=== PATIENT | female | born 2000 | race Caucasian/White ===

== ENCOUNTER 2023-10-13 14:36 | Emergency (ER) | payer OTHER ==
[2023-10-13 15:21] LABS: BILIRUBIN,URINE NEGATIVE (NEGATIVE); GLUCOSE, URINE (UA) NEGATIVE (NEGATIVE); KETONES,URINE (UA) NEGATIVE (NEGATIVE); LEUKOCYTE ESTERASE, URINE SMALL (NEGATIVE); NITRITE,URINE NEGATIVE (NEGATIVE); OCCULT BLOOD,URINE NEGATIVE (NEGATIVE); PROTEIN,URINE NEGATIVE (NEGATIVE); UROBILINOGEN,URINE 0.2 (NORMAL) E.U./dL (NORMAL)
[2023-10-13 15:27] LABS: CLARITY,URINE CLEAR (CLEAR)
[2023-10-13 15:43] LABS: BACTERIA,URINE Few /HPF (None Seen); RBC,URINE 0-5 /HPF (0-5); SQUAMOUS EPITHELIAL CELL,UR MANY Squamous (<= Few)
--- NOTE | 2023-10-13 16:26 | Ultrasound Report ---
PROCEDURE: OB 14+ Weeks INDICATIONS: R/O premature rupture of membranes OUTSIDE/PRIOR DATING DATA: Last menstrual period (LMP): 06/07/2023. LMP-based estimated date of delivery (LUCAS): 03/13/2020. First dating scan (date and location): 10/13/2023. Estimated date of delivery (LUCAS) from first dating scan: 03/11/2024. TECHNIQUE: Real-time scanning was performed of the fetus, with image documentation and biometric measurements. Endovaginal scanning: Not performed. COMPARISON: None. FINDINGS: General: A single living intrauterine gestation is present. Presentation: Variable Placenta: Placental position is posterior, without previa. Amniotic fluid index: 11.0 cm, within normal limits for gestational age. heart rate: 150 beats per minute. Maternal cervical canal: 4.6 cm long; normal length is 2.5 cm or more. biometrics: Biparietal diameter: 40 mm; 18 weeks 0 days Head circumference: 156 mm; 18 weeks 4 days Abdominal circumference: 140 mm; 19 weeks 3 days Femur length: 28 mm; 18 weeks 3 days Estimated gestational age from initial scan: not applicable. Composite gestational age from present scan: 18 weeks 4 days Estimated weight and percentile: 261 g, which is at the 80th percentile for gestational age Measurement variability for biometric dating: +/- 10 days from 12-20 weeks gestation, +/- 2 weeks fro m 20-30 weeks gestation, +/- 3 weeks for 30 weeks gestation or later. IMPRESSION: Single living intrauterine gestation. Reviewed by: Cristhian Baugh MD on 10/13/2023 4:24 PM PST Approved by: Cirsthian Baugh MD on 10/13/2023 4:24 PM PST Station ID: [id number]
--- NOTE | 2023-10-13 18:39 | CONSULTATION NOTE ---
Surgery Consult - Admit Date Hospital Admission Date: 10/13/23 - Consult Date Consult Date: 10/13/23 Requesting Provider: ER requesting follow up 2'2 vaginal discharge in - Chief Complaint Chief Complaint: pt here for "about a day" of increased vaginal discharge - Home Meds/Allergies Home Medications: Patient History Medication Instructions Recorded Confirmed Pnv No.95/Ferrous Fum/Folic AC 1 each PO DAILY 10/13/23 10/13/23 [ Caplet] Allergies/Adverse Reactions: Allergies Allergy/AdvReac Type Severity Reaction Status Date / Time No Known Drug Allergies Allergy Verified 10/13/23 14:55 - Vital Signs Vital Signs: Last Vital Signs Temp 97.2 F L 10/13/23 14:51 Pulse 76 10/13/23 14:51 Resp 16 10/13/23 14:51 BP 109/68 10/13/23 14:51 Pulse Ox 100 10/13/23 14:51 O2 Flow Rate - Consultation Note Consultation Note: Pt presented with 1 day of increased vaginal discharge, and some increased odour. mostly she notices that her underwear are a bit more wet than usual, after voiding. and there is some smell. she did have intercourse yesterday and there wasn't a worse smell after the intercourse no bleeding minimal cramping no gush of fluid first was a CAB in May 2022 without complications at 6 weeks of gestation. Had care in [place] and wasn't notified of being high risk or had problems up until this point. PMH:denies PSH: denies POB: - 6w MAB in 05/24 - CAB without complications PGYN: no h/o abnormal pap smears has regular periods when not no h/o STDs no h/o problems with uterus or ovaries, did have a remote h/o a cyst that resolved on it's own. Meds: none All: NKDA Soc: neg x3, does drink soda daily - discussed Support system: her , and her family is in [place], [place], (his family), and [place] (hers). On exam - unremarkable VSS U/S wnl and reassuring SSE: normal appearing cervix, though does appear somewhat erythematous - not icw . yellowish vaginal discharge - scant no pooling negative dami selam UA reviewed: neg nites, pos leuk est all consistent with BV - which she has had in the past - and was similar to this discussed treatment options. also sending vaginitis swab for confirmation pt prefers metronidazole PO, Rx sent to [facility]. Pt encouraged to call clinic to begin processes of establishing care. all questions answered
--- NOTE | 2023-10-13 19:18 | ED Physician Documentation ---
PD HPI FEMALE - Stated complaint Stated Complaint: - Chief complaint Chief Complaint: Abd Pain - History obtained from History obtained from: Patient - Additional information Additional information: 23-year-old female presents emergency department today for concerns of possible ruptured membranes. Patient is 18 weeks , G2, P0 the last time she was she had an uncomplicated miscarriage at about 6 weeks. Patient has not been able to establish care with [facility] thus far as she has recently moved to the area due to her 's [employer] job. Patient reports last night she started to notice some vaginal discharge that she describes as clear with some mild abdominal cramping and pain. She says she put the padding and she does notice some oozing of the vaginal discharge on the pad with each pad change. PD PAST MEDICAL HISTORY - Past Medical History Past Medical History: No - Past Surgical History Past Surgical History: No - Present Medications Home Medications: Ambulatory Orders Medication Instructions Recorded Confirmed Pnv No.95/Ferrous Fum/Folic AC 1 each PO DAILY 10/13/23 10/13/23 [ Caplet] metroNIDAZOLE [Flagyl] 500 mg PO BID 7 Days #14 tablet 10/13/23 - Allergies Allergies/Adverse Reactions: Allergies Allergy/AdvReac Type Severity Reaction Status Date / Time No Known Drug Allergies Allergy Verified 10/13/23 14:55 - Social History Does the pt smoke?: No Smoking Status: Never smoker Does the pt drink ETOH?: No Does the pt have substance abuse?: No - Immunizations Immunizations are current?: Yes PD ED PE NORMAL - Vitals Vital signs reviewed: Yes - General General: Alert and oriented X 3, No acute distress, Well developed/nourished - Abdomen Abdomen: Normal bowel sounds, Soft, Other (18 weeks ) - Female Female : Other ( exam complet by OBGYN) - Back Back: No CVA TTP Results - Vitals Vitals: Vital Signs - 24 hr 10/13/23 10/13/23 14:51 19:28 Temperature 36.2 C L Heart Rate 76 64 Respiratory 16 18 Rate Blood Pressure 109/68 114/74 O2 Saturation 100 99 Oxygen O2 Source Room air - Labs Labs: Laboratory Tests 10/13/23 15:15 Urine Color YELLOW Urine Clarity CLEAR Urine pH 7.0 Ur Specific [place] 1.010 Urine Protein NEGATIVE Urine Glucose (UA) NEGATIVE Urine Ketones NEGATIVE Urine Occult Blood NEGATIVE Urine Nitrite NEGATIVE Urine Bilirubin NEGATIVE Urine Urobilinogen 0.2 (NORMAL) Ur Leukocyte Esterase SMALL H Urine RBC 0-5 Urine WBC 4-5 Ur Squamous Epith Cells MANY Squamous H Urine Bacteria Few Ur Microscopic Review INDICATED Urine Culture Comments NOT INDICATED - Rads (name of study) OB US Relevant Findings:: Final report received, EMP independent interpretation of test (Single living intrauterine gestation, amniotic fluid index 11 cm which is within normal limits for gestational age.) PD Medical Decision Making - ED course ED course: 23-year-old female here for concerns of ruptured membranes. Ultrasound does not reveal any leaking amniotic fluid. Because patient has not sought care with [facility] I reach out to Dr. Crouch, [facility] for further evaluation and consideration of why patient is still having some vaginal oozing and leaking despite normal ultrasound. She was kind enough to come in and do a vaginal exam on the patient and patient was found to have bacterial vaginosis. A prescription of Flagyl was sent to her preferred pharmacy for her to start taking tomorrow twice a day for the next 7 days. Urinalysis does not have any leukocytes or nitrites not concerning for UTI. She is safe for discharge at this time all questions answered. Grateful for Dr. Crouch wonderful support with this pt. Departure - Departure Disposition: 01 Home, Self Care Clinical Impression: Bacterial vaginosis Condition: Good Instructions: ED Vaginosis Bacterial Prescriptions: metroNIDAZOLE [Flagyl] 500 mg PO BID 7 Days #14 tablet Comments: Thank you for trusting us with your care we have completed an ultrasound and your baby appears to be healthy there is no abnormalities visualized. Dr. Crouch our wonderful [facility] was able to come in and do a pelvic exam on you for further evaluation of your concerns of ongoing vaginal leakage. You are found to have bacterial vaginosis she sent a prescription to your preferred pharmacy, you will take Flagyl twice a day for the next 7 days for your bacterial vaginosis. Please attempt to establish care with [facility] as soon as possible and over that can be tricky with the [employer]. Please come back to the emergency department for starting to experience any abdominal pain, nausea vomiting, or any signs or symptoms of worsening infection, fevers or chills or any other concerning symptoms related to her . Forms: PCP List Discharge Date/Time: 10/13/23 19:28
[2023-10-13 19:39] VITALS: BP 114/74; O2SAT 99
[2023-10-13 22:24] LABS: BACTERIAL VAGINOSIS DNA NEGATIVE (NEGATIVE); CANDIDA GLABRATA DNA NEGATIVE (NEGATIVE); CANDIDA GROUP DNA NEGATIVE (NEGATIVE); CANDIDA KRUSEI DNA NEGATIVE (NEGATIVE); TRICHOMONAS VAGINALIS DNA NEGATIVE (NEGATIVE)
== END 2023-10-13 19:28 | disposition home or self-care (01) ==
LOC: ED 14:36
DX: O99.891 Other specified diseases and conditions complicating pregnancy (principal); N76.0 Acute vaginitis; Z3A.18 18 weeks gestation of pregnancy
CPT/HCPCS: 81001; 81003; 81514; 87086; 99284

== ENCOUNTER 2023-10-31 08:00 | Outpatient (CLI) | payer OTHER ==
[2023-10-31 16:37] LABS: BILIRUBIN,URINE NEGATIVE (NEGATIVE); GLUCOSE, URINE (UA) NEGATIVE (NEGATIVE); KETONES,URINE (UA) NEGATIVE (NEGATIVE); LEUKOCYTE ESTERASE, URINE NEGATIVE (NEGATIVE); NITRITE,URINE NEGATIVE (NEGATIVE); OCCULT BLOOD,URINE NEGATIVE (NEGATIVE); PROTEIN,URINE NEGATIVE (NEGATIVE); UROBILINOGEN,URINE 0.2 (NORMAL) E.U./dL (NORMAL)
[2023-10-31 16:40] LABS: CLARITY,URINE CLEAR (CLEAR)
[2023-10-31 17:08] LABS: WBC,URINE 0-3 /HPF (0-5)
[2023-10-31 17:09] LABS: AMORPHOUS SEDIMENT,UR Few /LPF; BACTERIA,URINE Many /HPF (None Seen); RBC,URINE 0-5 /HPF (0-5); SQUAMOUS EPITHELIAL CELL,UR MANY Squamous (<= Few)
== END 2023-10-31 23:59 | disposition home or self-care (01) ==
LOC: LAB.WC 08:00
PROVIDERS: ATTEND Nurse Practitioner
DX: Z34.90 Encounter for supervision of normal pregnancy, unspecified, unspecified trimester (principal)
CPT/HCPCS: 81001; 87086

== ENCOUNTER 2023-11-07 07:57 | Outpatient (CLI) | payer OTHER ==
--- NOTE | 2023-11-08 09:00 | Ultrasound Report ---
PROCEDURE: OB Anatomy Scan INDICATIONS: SUPERVISION OF OUTSIDE/PRIOR DATING DATA: Last menstrual period (LMP): 06/07/2023. LMP-based estimated date of delivery (LUCAS): 03/13/2024. First dating scan (date and location): Not available. Estimated date of delivery (LUCAS) from first dating scan: Not available. The below data below was generated using the working LUCAS of 03/11/2024 TECHNIQUE: Real-time scanning was performed of the fetus, with image documentation and biometric measurements. Endovaginal scanning: Not performed. COMPARISON: OB ultrasound, 10/13/2023. FINDINGS: General: A single living intrauterine gestation is present. Presentation: Cephalic Placenta: Placental position is posterior, without previa. Amniotic fluid index: 10.2 cm with the largest pocket 2.7 cm. heart rate: 135 beats per minute. Maternal cervical canal: Closed measuring 3.4 cm long; normal length is 2.5 cm or more. biometrics: Biparietal diameter: 4.8 cm; 20 weeks 5 days; 6.3%. Head circumference: 19.8 cm; 22 weeks 0 days; 32.8%. Abdominal circumference: 17.7 cm; 22 weeks 5 days; 59.8%. Femur length: 3.8 cm; 22 weeks 1 day; 39.7%. Estimated gestational age from initial scan: 22 weeks 1 day Composite gestational age from present scan: 21 weeks 6 days Estimated weight and percentile: 494.5 cm; 53.1% for gestational age. Measurement variability in biometric dating: +/- 10 days from 12-20 weeks gestation, +/- 2 weeks from 20-30 weeks gestation, +/- 3 weeks at 30 weeks gestation or later. Anatomic survey: Neuro: Ventricles are normal at less than 10 mm. Cisterna magna is normal at 3-11 mm. Cerebellum i s normal in size and morphology. Nuchal skin fold: Normal at less than 6 mm between 14 and 20 weeks gestational age. Face: Nose and lips, facial profile are normal. Spine: No evidence for spina bifida. Heart: 4-chambered heart is present, with normal ventricular outflow tracts. Diaphragm: Diaphragm is intact. Stomach: Left-sided stomach is present. Kidneys: No hydronephrosis. Normal is less than 5 mm in 2nd trimester, less than 7 mm in 3rd trimester. Cord: 3 vessel cord has orthotopic insertion. Bladder: Normal in size. Extremities: All 4 extremities are visualized. IMPRESSION: 1. A single living IUP with appropriate interval growth. 2. weight is 494.5 g, 53.1 for gestational age. 3. Normal anatomic survey. Reviewed by: Annalisa Key MD on 11/08/2023 8:59 AM PST Approved by: Annalisa Key MD on 11/08/2023 8:59 AM PST Station ID: [id number]
== END 2023-11-07 07:58 | disposition home or self-care (01) ==
LOC: DI 07:57
PROVIDERS: ATTEND Obstetrics & Gynecology
DX: Z34.92 Encounter for supervision of normal pregnancy, unspecified, second trimester (principal); Z36.89 Encounter for other specified antenatal screening

== ENCOUNTER 2023-12-08 12:34 | Outpatient (CLI) | payer OTHER ==
[2023-12-08 13:58] LABS: HCT - HEMATOCRIT 33.8 % (37.0-47.0); HGB - HEMOGLOBIN 11.7 g/dL (12.0-16.0); MEAN CORPUSCULAR HEMOGLOBIN 31.9 pg (27.0-31.0); MEAN CORPUSCULAR HGB CONC 34.6 g/dL (32.0-36.0); MEAN CORPUSCULAR VOLUME 92.1 fL (81.0-99.0); MEAN PLATELET VOLUME 8.9 fL (7.9-10.8); RED BLOOD COUNT 3.67 10^6/uL (4.20-5.40); RED CELL DISTRIBUTION WIDTH 12.5 % (12.0-15.0); WHITE BLOOD COUNT 8.3 x10^3/uL (4.8-10.8)
[2023-12-09 06:09] LABS: HBsAG SCREEN Negative (Negative)
== END 2023-12-08 12:35 | disposition home or self-care (01) ==
LOC: LAB 12:34
PROVIDERS: ATTEND Obstetrics & Gynecology
DX: Z34.90 Encounter for supervision of normal pregnancy, unspecified, unspecified trimester (principal)
CPT/HCPCS: 36415; 82950; 85027; 86850; 87340

== ENCOUNTER 2023-12-19 08:00 | Outpatient (CLI) | payer OTHER ==
[2023-12-20 00:24] LABS: BACTERIAL VAGINOSIS DNA NEGATIVE (NEGATIVE); CANDIDA GLABRATA DNA NEGATIVE (NEGATIVE); CANDIDA GROUP DNA NEGATIVE (NEGATIVE); CANDIDA KRUSEI DNA NEGATIVE (NEGATIVE); TRICHOMONAS VAGINALIS DNA NEGATIVE (NEGATIVE)
== END 2023-12-19 23:59 | disposition home or self-care (01) ==
LOC: LAB.WC 08:00
PROVIDERS: ATTEND Obstetrics & Gynecology
DX: N89.8 Other specified noninflammatory disorders of vagina (principal)
CPT/HCPCS: 81514

== ENCOUNTER 2024-01-02 08:00 | Outpatient (CLI) | payer OTHER ==
[2024-01-04 17:09] LABS: HSV-1 DNA Positive (Negative); HSV-2 DNA Negative (Negative)
== END 2024-01-02 23:59 | disposition home or self-care (01) ==
LOC: LAB.WC 08:00
PROVIDERS: ATTEND Obstetrics & Gynecology
DX: N90.89 Other specified noninflammatory disorders of vulva and perineum (principal)
CPT/HCPCS: 87529

== ENCOUNTER 2024-02-20 08:00 | Outpatient (CLI) | payer OTHER | END 2024-02-20 23:59 | disposition home or self-care (01) | LOC: LAB.WC 08:00 | PROVIDERS: ATTEND Obstetrics & Gynecology | DX: Z36.85 Encounter for antenatal screening for Streptococcus B (principal) | CPT/HCPCS: 87081; 87797 ==

== ENCOUNTER 2024-03-10 01:41 | Inpatient (IN) | payer OTHER ==
[2024-03-10] MEDS ORDERED: SODIUM CHLORIDE FLUSH 0.9% 10 ML SYRINGE IVP PRN (01:58)
[2024-03-10] MEDS ORDERED: miSOPROStoL 200 MCG TABLET PR PRN (01:58)
[2024-03-10] MEDS ORDERED: CARBOPROST TROMETHAMINE 250 MCG/ML VIAL IM PRN (01:58)
[2024-03-10] MEDS ORDERED: lidocaine 1% 20 ML MDV ID PRN (01:58)
[2024-03-10] MEDS ORDERED: hydrALAZINE INJ 20 MG/ML VIAL IVP PRN ×2 (01:58)
[2024-03-10] MEDS ORDERED: LACTATED RINGERS 2,000 ML ONE (01:58)
[2024-03-10] MEDS ORDERED: OXYTOCIN 10 UNIT/ML VIAL IM PRN (01:58)
[2024-03-10] MEDS ORDERED: LABETALOL 20 MG/4 ML SYRINGE IVP PRN ×3 (01:58)
[2024-03-10] MEDS ORDERED: TRANEXAMIC ACID IN NACL 1,000 MG/100 ML BAG IV PRN (01:58)
[2024-03-10] MEDS ORDERED: miSOPROStoL 200 MCG TABLET BC PRN (01:58)
[2024-03-10] MEDS ORDERED: NIFEdipine 10 MG CAPSULE PO PRN (01:58)
[2024-03-10] MEDS ORDERED: METHYLERGONOVINE 0.2 MG/ML VIAL IM PRN (01:58)
[2024-03-10] MEDS ORDERED: TERBUTALINE 1 MG/ML VIAL SUBQ PRN (01:58)
[2024-03-10] MEDS: LACTATED RINGERS 1,000 ML IV PRN (02:00)
[2024-03-10] MEDS ORDERED: SODIUM CHLORIDE FLUSH 0.9% 10 ML SYRINGE IVP SCH (02:00)
--- NOTE | 2024-03-10 02:07 | HISTORY & PHYSICAL EXAMINATION ---
Admit History - Visit Reason Visit Reason: Contractions - : 2 Parity: 0 Care: positive: [facility] Risk/History: positive: None Complications This : positive: None Smoking Status: Never smoker - Mother's Labs Mother's Blood Type: positive: O Mother's RH: positive: Positive GBS: positive: Group B Strep Positive Rubella Status: positive: Equivocal - Other Maternal History Other Maternal History: LMP: 06/08/23 LUCAS by LMP: 03/14/24 US:08/27/23 c/w dates Final LUCAS: 03/14/24 , [place]: Yvette. started in [place]. to [place] in Sep 2023. originally from [place]. anxiety: was on sertraline at beginning of . off now and feels ok. 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 GERD- Famotiding 20mg, 02/28 better and not using anything. Pre- Weight:129 BMI: 20.24 Blood type: O+ Antibody: negative. 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 Genetic testin09/13/23 - neg Covid: 10/31/23 Flu: 10/31/23 FAS: Placenta:posterior Cord:3VC CARLOS:10.2cm EFW:494g 53%ile 50gm OGCT: 94 TDAP: 12/18 Breast Pump: 12/18 3rd trimester CBC H/H 11.7/33.8 plt 235 GBS:Positive NKDA Delivery plan: epidural. Contraception: OCPs vs POPs. 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 Stopped drinking alcohol due to . Denies current use of tobacco, marijuana or other recreational drugs. Family Hx: Denies family history of congenital anomalies, Cystic Fibrosis or chromosomal abnormalities Allergies: NKDA Medications: PNV, VALTREX - HPI Vital Signs Temperature 36.4 C L 03/10/24 01:45 Heart Rate 69 03/10/24 01:45 Respiratory Rate 16 03/10/24 01:45 Blood Pressure 135/87 H 03/10/24 01:45 Temperature 36.4 C L 03/10/24 01:45 Heart Rate 69 03/10/24 01:45 Respiratory Rate 16 03/10/24 01:45 Blood Pressure 135/87 H 03/10/24 01:45 O2 Saturation If not protocol: Oxygen Flow, liters/minute Meds/Allgy - Home Medications Home Medications: Ambulatory Orders Medication Instructions Recorded Confirmed Pnv No.95/Ferrous Fum/Folic AC 1 each PO DAILY 10/13/23 10/13/23 [ Caplet] metroNIDAZOLE [Flagyl] 500 mg PO BID 7 Days #14 tablet 10/13/23 - Allergies Allergies/Adverse Reactions: Allergies Allergy/AdvReac Type Severity Reaction Status Date / Time No Known Drug Allergies Allergy Verified 10/13/23 14:55 Physical - Abdominal Exam Vital Signs: Temp Pulse Resp BP Pulse Ox O2 Flow Rate 36.4 C L 69 16 135/87 H 03/10/24 01:45 03/10/24 01:45 03/10/24 01:45 03/10/24 01:45 Contraction Frequency (min/apart): 2-4 Contraction Intensity: positive: Moderate Uterine Resting Tone: positive: Soft - Monitoring Heart Rate Baseline: 140 Strip Review: positive: Category I - Presentation Presentation: positive: Vertex - Vaginal Exam Membranes: positive: Membranes intact Dilation (in cm): 4 Effacement (%): 80 Station: positive: -2 - Speculum Exam Speculum Exam Performed: positive: No - Other Notes Labor Progress Note/Additional Text: HPI: This 23 yo @ 39+3 weeks by LMP and confirmed by first trimester ultrasound. She began delilah earlier this evening and came into L&D triage when the contractions were spaced q2 minutes apart and became more painful. Upon arrival her cervix was 4/80/-2 and vertex with intact membranes. We reviewed management options at length and patient desires to allow labor to progress naturally unless there is a need for intervention. GBS POSITIVE. She started her in [place] and transferred care with [facility] at 20+5 weeks. Her remained uncomplicated Denies Headache, visual changes or right upper quadrant abdominal pain. Denies nausea and vomiting. Denies urinary urgency or dysuria. ROS: All other symptoms reviewed and were negative except per HPI. Dating criteria: LMP: 06/08/23 LUCAS by LMP: 03/14/24 US:08/27/23 c/w dates Final LUCAS: 03/14/24 serial Exams agree OB Hx: G1: 05/2022 SAB G2: Current Physical exam: Normocephalic, atraumatic Heart RRR w/o M/G/R Lungs CTAB Abdomen gravid, soft, nontender. EFW 3600 FHR baseline 140, moderate variability, + accelerations, no decelerations Contractions palpate moderate every 2-4 minutes with soft resting tone SVE 4/80/-2 vertex, membranes intact Bilateral LE's no edema Mood is good. Plan for Labor - Plan For Labor I expect patient to be DC'd or transferred within 96 hours.: Yes Plan for Labor: Assessment: 23yo @ 39+3 weeks gestation Early labor FHR Cat I GBS POS, NKDA Plan: Admit to [facility] for Expectant management Continuous monitoring Jacuzzi PRN. Nitrous oxide PRN. Epidural per maternal request Anticipate .
[2024-03-10] MEDS: fentaNYL 100 MCG/2 ML VIAL IVP PRN (02:15)
[2024-03-10 02:34] LABS: BASOPHILS % (AUTO) 0.2 %; EOSINOPHILS % (AUTO) 0.4 %; HCT - HEMATOCRIT 36.7 % (37.0-47.0); HGB - HEMOGLOBIN 12.6 g/dL (12.0-16.0); LYMPHOCYTES # (AUTO) 2.7 10^3/uL (1.5-3.5); LYMPHOCYTES % (AUTO) 26.4 %; MEAN CORPUSCULAR HEMOGLOBIN 31.1 pg (27.0-31.0); MEAN CORPUSCULAR HGB CONC 34.3 g/dL (32.0-36.0); MEAN CORPUSCULAR VOLUME 90.6 fL (81.0-99.0); MEAN PLATELET VOLUME 10.1 fL (7.9-10.8); MONOCYTES # (AUTO) 0.7 10^3/uL (0.0-1.0); MONOCYTES % (AUTO) 7.3 %; NEUTROPHILS # (AUTO) 6.7 10^3/uL (1.5-6.6); NEUTROPHILS % (AUTO) 65.3 %; PLT - PLATELET COUNT 230 10^3/uL (130-450); RED BLOOD COUNT 4.05 10^6/uL (4.20-5.40); RED CELL DISTRIBUTION WIDTH 13.1 % (12.0-15.0); WHITE BLOOD COUNT 10.2 x10^3/uL (4.8-10.8)
[2024-03-10] MEDS: AMPICILLIN 2 GM in SODIUM CHLORIDE 0.9% MINIBAG 100 ML IV ONE (02:44)
[2024-03-10] MEDS ORDERED: LIDOCAINE 2%-EPI 1:100000 20 ML MDV ONE (03:45)
[2024-03-10] MEDS ORDERED: ROPIVACAINE 0.2% 200 MG/100 ML BAG EP ONE (03:45)
--- NOTE | 2024-03-10 04:30 | ANESTHESIA ---
Pre-Anesthesia VS, & Labs - Diagnosis active labor - Procedure labor epidural Vital Signs: Temp Pulse Resp BP Pulse Ox O2 Flow Rate 36.4 C L 69 16 135/87 H 03/10/24 02:04 03/10/24 01:45 03/10/24 01:45 03/10/24 01:45 Height: 5 ft 7 in Weight (kg): 74.843 kg Body Mass Index: 25.8 BMI Classification: Overweight - NPO Other - Is Patient ?: Yes - Lab Results Current Lab Results: Laboratory Tests 03/10/24 03:00: Blood Type Recheck O POSITIVE 03/10/24 02:10: WBC 10.2, RBC 4.05 L, Hgb 12.6, Hct 36.7 L, MCV 90.6, MCH 31.1 H , MCHC 34.3, RDW 13.1, Plt Count 230, MPV 10.1, Neut # (Auto) 6.7 H, Lymph # (Auto) 2.7, [place] # (Auto) 0.7, Eos # (Auto) 0.0, Baso # (Auto) 0.0, Absolute Nucleated RBC 0.00, Nucleated RBC % 0.0 03/10/24 02:10: Blood Type O POSITIVE, Antibody Screen NEGATIVE Fish Bones: 03/10/24 02:10 Home Medications and Allergies Active Medications Carboprost Tromethamine (Carboprost Tromethamine 250 Mcg/Ml Vial) 250 mcg IM .O NCE PRN PRN Reason: Hemorrhage Fentanyl (Fentanyl 100 Mcg/2 Ml Vial) 50 mcg IVP Q1H PRN PRN Reason: Severe Pain (score 7-10) Last Admin: 03/10/24 03:29 Dose: 50 mcg Hydralazine HCl (Hydralazine Inj 20 Mg/Ml Vial) 5 - 10 mg IVP Q20M PRN; Protocol PRN Reason: SBP> or= 160 OR DBP> or= 110 Hydralazine HCl (Hydralazine Inj 20 Mg/Ml Vial) 10 mg IVP .ONCE PRN; Protocol PRN Reason: SBP> or= 160 OR DBP> or= 110 Lactated Ringer's (Lr) 500 mls @ 999 mls/hr IV PRN PRN PRN Reason: Blood Pressure Oxytocin/Sodium Chloride (Pitocin/Sodium Chloride) 500 mls @ 999 mls/hr IV PRN PRN; Protocol PRN Reason: POST- HEMORR PREVENTION Tranexamic Acid (Tranexamic 1,000 Mg/100ml-Nacl) 1,000 mg in 100 mls @ 600 mls/hr IV Q30M PRN PRN Reason: EBL >1200mL and within 3hr Ampicillin Sodium 1 gm/ Sodium (Chloride) 100 mls @ 200 mls/hr IV Q4H ARUNA Labetalol HCl (Labetalol 20 Mg/4 Ml Syringe) 20 - 80 mg IVP Q10M PRN; Protocol PRN Reason: SBP> or= 160 OR DBP> or= 110 Labetalol HCl (Labetalol 20 Mg/4 Ml Syringe) 20 mg IVP .ONCE PRN; Protocol PRN Reason: SBP> or= 160 OR DBP> or= 110 Labetalol HCl (Labetalol 20 Mg/4 Ml Syringe) 20 - 40 mg IVP Q10M PRN; Protocol PRN Reason: SBP> or= 160 OR DBP> or= 110 Lidocaine HCl (Lidocaine 1% 20 Ml Mdv) 20 ml ID .ONCE PRN PRN Reason: PERINEAL REPAIR Stop: 03/13/24 01:58 Methylergonovine Maleate (Methylergonovine 0.2 Mg/Ml Vial) 0.2 mg IM .ONCE PRN PRN Reason: Hemorrhage Misoprostol (Misoprostol 200 Mcg Tablet) 600 mcg BC .ONCE PRN PRN Reason: Hemorrhage Misoprostol (Misoprostol 200 Mcg Tablet) 800 mcg VA .ONCE PRN PRN Reason: Hemorrhage Nifedipine (Nifedipine 10 Mg Capsule) 10 - 20 mg PO Q20M PRN; Protocol PRN Reason: SBP> or= 160 OR DBP> or= 110 Oxytocin (Oxytocin 10 Unit/Ml Vial) 10 unit IM .ONCE PRN PRN Reason: Step One if no IV access. Sodium Chloride (Sodium Chloride Flush 0.9% 10 Ml Syringe) 10 ml IVP PRN PRN PRN Reason: NEEDED PER PROVIDER ORDERS Sodium Chloride (Sodium Chloride Flush 0.9% 10 Ml Syringe) 10 ml IVP Q8H ARUNA Terbutaline Sulfate (Terbutaline 1 Mg/Ml Vial) 0.25 mg SUBQ .ONCE PRN PRN Reason: Tachystole Pnv No.95/Ferrous Fum/Folic AC [ Caplet] 1 each PO DAILY 10/13/23 Allergies/Adverse Reactions: Allergies Allergy/AdvReac Type Severity Reaction Status Date / Time No Known Drug Allergies Allergy Verified 10/13/23 14:55 Anes History & Medical History - Anesthetic History Anesthesia Complications: reports: No previous complications Family history of Anesthesia Complications: Denies Family history of Malignant Hyperthermia: Denies - Medical History Cardiovascular: reports: None Pulmonary: reports: None Gastrointestinal: reports: None Urinary: reports: None Neuro: reports: None Musculoskeletal: reports: None Endocrine/Autoimmune: reports: None Blood Disorders: reports: None Skin: reports: Herpes zoster Smoking Status: Never smoker Psychosocial: reports: No issues indicated, Depression (hx of) History of Cancer?: No - Obstetrical History : 2 Parity: 0 Events: reports: None Complications: reports: None Exam General: Alert, Oriented x3, Cooperative Dental: WNL Mouth Openin Fingerbreadth Neck Mobility: Normal Mallampati classification: II Thyromental Distance: 4-6 cm Respiratory: Lungs clear Cardiovascular: Regular rate Plan Anesthesia Type: Epidural Consent for Procedure(s) Verified and Reviewed: Yes Code Status: Attempt Resuscitation ASA classification: 2-Mild systemic disease Is this case an emergency?: No
[2024-03-10] MEDS ORDERED: ePHEDrine 50 MG/ML VIAL IVP PRN (04:33)
[2024-03-10] MEDS ORDERED: NALBUPHINE 10 MG/ML AMP IVP PRN (04:33)
[2024-03-10] MEDS ORDERED: NALOXONE 0.4 MG/ML VIAL IVP PRN (04:33)
[2024-03-10] MEDS ORDERED: ROPIVACAINE 0.2% 200 MG/100 ML BAG EP PRN (04:33)
[2024-03-10] MEDS ORDERED: diphenhydrAMINE INJ 50 MG/ML VIAL IVP PRN (04:33)
[2024-03-10] MEDS ORDERED: ONDANSETRON 4 MG/2 ML VIAL IVP PRN ×2 (05:35→14:34)
[2024-03-10] MEDS: ONDANSETRON 4 MG/2 ML VIAL IVP PRN (05:36)
[2024-03-10] MEDS: AMPICILLIN 1 GM in SODIUM CHLORIDE 0.9% MINIBAG 100 ML IV SCH (06:09)
[2024-03-10] MEDS: METOCLOPRAMIDE 10 MG/2 ML VIAL IVP PRN (07:19)
--- NOTE | 2024-03-10 09:00 | PROVIDER PROGRESS NOTE ---
Labor Progress Note - Uterine Monitoring Uterine Monitoring Mode: positive: External toco Contraction Frequency (min/apart): 2-4 Contraction Intensity: positive: Moderate to strong - Monitoring Monitor Mode: positive: External ultrasound Heart Rate Baseline: 135 Heart Rate Variability: positive: Moderate (6-25 bmp) Accelerations: positive: Present, 15x15 Decelerations: positive: None Strip Review: positive: Category I - Vaginal Exam Dilation (in cm): 10 Effacement (%): 100 Station: 0 - Labor Progress Note Labor Progress Note/Additional Text: Taken over care. Checked patient and she is complete. Discussed amniotomy and patient consented. Performed with a small amount of clear fluid. Will start pushing now.
[2024-03-10] MEDS: OXYTOCIN/SODIUM CHLORIDE 500 ML IV PRN (10:55)
--- NOTE | 2024-03-10 11:38 | DELIVERY NOTE ---
<Beata Guadalupe - Last Filed: 03/10/24 11:38> Delivery Note - Labor Labor: positive: Spontaneous - Infant Delivery Method Delivery Method: positive: Spontaneous vaginal delivery - Presentation Presentation: positive: NIMO - left occiput anterior - Nuchal Cord Nuchal Cord: positive: None - Anesthetic Anesthetic Type: - Amniotic Fluid Description Amniotic Fluid Description: positive: Clear - Episiotomy Type Episiotomy Type: positive: None - Laceration Laceration: positive: 2nd degree, Perineal - Suture Suture Type: positive: Vicryl Suture Size: positive: 3-0 - Delivery Outcome Delivery Outcome: positive: Livebirth - [place] : positive: Placed in direct skin contact with mother, Bulb syringe, Stimulated, Warmed, [place] used, Warmer used sex: positive: Female - Cord Cord: positive: 3 vessels - Placenta Placenta: positive: Intact - Estimated Blood Loss Estimated Blood Loss (in cc): 300 - Delivery Comments (Free Text/Narrative) Delivery Comments (Free Text/Narrative): This 23 -year-old, G 2 P 0 . @ 39+3 weeks gestation by LMP confirmed by ultrasound, presented @ 0200 in early labor on 03/10/2024 and in good condition. Cervix was 4/80/-2 and Vertex presentation by exam. GBS positive. Treated x3 dose ampicillin. FHR pattern demonstrated 140-150s baseline and primarily category I prior to second stage. Normal labor course. Epidural placed upon maternal request. AROM occurred @ 0846. She then progressed to complete/complete @ 0846 and ready to deliver. Second stage began at 0903 : Normal spontaneous vaginal delivery of a viable female infant on 03/10/2024 @ 1053. No nuchal cord. The was placed on maternal abdomen, stimulated, dried and placed skin to skin. Apgars 9 @1 min, and 9@ 5 minutes. Pitocin administered via IV for hemostasis. The umbilical cord was allowed to stop pulsating at which time it was doubly clamped by delivering provider and cut by FOB. 3VC. Cord blood was obtained. Fundal massage and gently cord traction applied for active management of the third stage, placenta delivered spontaneously and intact @ 10:58 time. EBL 300. Placenta was WAS NOT sent to pathology. Thirty units of Pitocin were added to the IV fluid a allowed to run freely. Uterine massage was performed until uterus was deemed firm. Inspection of the perineum noted a second-degree midline laceration. This was repaired with a running suture of 3-0 vicryl rapide, repaired in standards fashion under sterile condition. Upon re-inspection the patient was hemostatic. Uterus again massaged and found to be firm. Needle and sponge counts were correct. Fourth stage: Uterine fundus firm and there is no excessive bleeding. Vaginal and rectal examination following the repair was done. Tissues well approximated. Skin to skin initiated. Family bonding well. Both mother and baby are in stable condition. <Arden Sharma A - Last Filed: 03/10/24 12:09> Delivery Note - Delivery Comments (Free Text/Narrative) Delivery Comments (Free Text/Narrative): I was present for the delivery performed by nurse taxi driver supervisor student Beata Guadalupe, and she delivered a healthy without complication. Repain of second-degree midline laceration was done well. Patient recovering well.
[2024-03-10] MEDS ORDERED: SIMETHICONE CHEW 80 MG TABLET PO PRN (14:34)
[2024-03-10] MEDS ORDERED: CALCIUM CARBONATE CHEW 500 MG TABLET PO PRN (14:34)
[2024-03-10] MEDS: ACETAMINOPHEN 500 MG TABLET PO SCH (14:48)
[2024-03-10] MEDS: IBUPROFEN 600 MG TABLET PO SCH (14:49)
[2024-03-10] MEDS ORDERED: LACTATED RINGERS 1,000 ML IV SCH (15:00)
[2024-03-10] MEDS: DOCUSATE SODIUM 100 MG CAPSULE PO PRN (20:17)
--- NOTE | 2024-03-11 10:20 | PROVIDER PROGRESS NOTE ---
Subjective - Prog Note Date Prog Note Date: 03/11/24 Prog Note Time: 10:00 - Subjective Pt reports feeling: Improved Subjective: Comfortable. Appropriate lochia. Ambulating. Voiding. Tolerating regular diet. . Mood is ok. Objective - Vital Signs/Intake & Output Reviewed Vital Signs: Yes Vital Signs: Vital Signs x48h Temp Pulse Resp BP Pulse Ox 03/11/24 08:25 98.1 F 14 134/80 H 03/11/24 04:13 98.2 F 70 16 101/62 96 Intake & Output: Intake & Output 03/08/24 03/09/24 03/10/24 03/11/24 23:59 23:59 23:59 23:59 Intake Total 1433.1 Output Total 2125 Balance -691.9 - Objective General Appearance: positive: No acute distress Eyes Bilateral: positive: EOMI Respiratory: positive: No respiratory distress Abdomen: positive: Other (FF) Skin: positive: Color nml Extremities: positive: Non-tender Neurologic/Psychiatric: positive: Oriented x3 - Lab Results Fish Bones: 03/10/24 02:10 Assessment/Plan - Problem List (1) care following vaginal delivery Impression: 23yo s/p with second degree laceration repaired 03/10/24, PPD#1 - Continue care - Anticipate discharge tomorrow
[2024-03-12 10:02] VITALS: BP 114/73; O2SAT 99
--- NOTE | 2024-03-12 11:11 | Labor Flowsheet ---
Labor Flowsheet Datetime Report Generated by CPN: 03/12/2024 11:11 Datetime: 03/12/2024 09:36 VITAL SIGNS NBP Sys/Tika/Mean (mmHg): 114 : 73 : 83 Pulse: 90 Datetime: 03/11/2024 07:00 Stage of : Datetime: 03/10/2024 11:11 PAIN Pain Presence: None/Denies Datetime: 03/10/2024 11:10 SpO2 (%): 98 Datetime: 03/10/2024 10:49 Monitor Interventions for FHR: Ultrasound Adjusted Datetime: 03/10/2024 10:46 Provider Reviewed Strip: Yes COMMUNICATION Communication: Provider at Bedside Provider Notified (Name): D. Zachary Datetime: 03/10/2024 10:45 UTERINE ACTIVITY Monitor Mode: External Frequency (min): 2-3 Quality: Strong Duration (sec): 50-80 Pattern: Normal: <= 5 Contractions in 10 Minutes Resting Tone (Palpate): Relaxed ASSESSMENT A Monitor Mode: External US FHR Baseline Rate : 150 Variability: Minimal - Undetectable to <=5 bpm Accelerations: None Decelerations: Late; Variable Actions for Decelerations: Provider Notified Category: Category II LaborFlag: Labor Datetime: 03/10/2024 10:35 STAGE 2 Pushing: Coached on Pushing; Urge to Push Pushing Position: Pushing Left Side Datetime: 03/10/2024 10:30 Pushing Progress: with Pushing Datetime: 03/10/2024 10:27 MEDICATIONS Antibiotics: Start Antibiotics; Ampicillin IV 1 Gm Datetime: 03/10/2024 10:04 Stage 2 Comments: pt feet on foot pedals Datetime: 03/10/2024 09:45 Comments: Provider and RN continuously at bedside Datetime: 03/10/2024 09:30 Membranes Ruptured Date/Time: 03/10/2024 08:46 Amniotic Fluid Odor: None Datetime: 03/10/2024 09:10 I/O Interventions: Phillips Discontinued Datetime: 03/10/2024 09:01 FHR Baseline Changes: Return to Previous Baseline Datetime: 03/10/2024 08:46 VAGINAL EXAM Dilatation (cm): 10.0 Station: 1 Exam by: Dr. Sharma Membranes Rupture Method: Artificial Amniotic Fluid Color: Clear Amniotic Fluid Amount: Moderate Datetime: 03/10/2024 08:30 Monitor Interventions for UA: Floris Adjusted Datetime: 03/10/2024 08:11 PATIENT CARE IV/Blood Work: IV Bolus Started Notification Reason: Status Update; Status; Labor Status Datetime: 03/10/2024 07:35 Respirations: 16 Temperature (C): 37.2 Temperature Route: Oral Datetime: 03/10/2024 07:26 Patient Position/Activity: Right Lateral Datetime: 03/10/2024 07:19 Antiemetics/Antacids: Reglan 10 mg IV Datetime: 03/10/2024 04:38 Effacement (%): 90 Vaginal Bleeding: Normal Show Cervix, Consistency: Soft Cervix, Position: Anterior Datetime: 03/10/2024 04:13 Epidural Procedure Other: Pump Started Datetime: 03/10/2024 04:09 Epidural Procedure: Loading Dose Datetime: 03/10/2024 03:51 PROCEDURE TIME OUT Procedure Verify: Correct Patient Identity; Accurate Procedure Consent Form; Agreement on Procedure to be Done; Correct Patient Position; Relevant Images and Results are Properly Labeled and Displayed ; Safety Precautions Based on Patient History or Medication Use ANESTHESIA Anesthesia Plans: Epidural Epidural Positioning: Sitting Datetime: 03/10/2024 03:46 Anesthesia Comments: mukund koch switch inspector at bedside for epidural
[2024-03-12] MEDS ORDERED: DOCUSATE SODIUM 100 MG CAPSULE PO SCH (20:00)
--- NOTE | 2024-03-13 10:45 | DISCHARGE SUMMARY ---
"Discharge Summary Admit Date: 03/10/24 Discharge Date: 03/12/24 Discharging Provider: Amisha Landers MD Code Status: Attempt Resuscitation Condition at Discharge: Good - DIAGNOSES Admission Diagnoses: term in labor Discharge Diagnoses with Status of Each Condition: s/p uncomplicated vaginal delivery. gbs + s/p 3 doses ampicillin. - HPI History of Present Illness: presents in labor. no other issues. - CONSULTS | PROCEDURES Procedures: vaginal delivery with epidural anesthesia - HOSPITAL COURSE Hospital Course: labor spontaneous. epidural for pain management. vaginal delivery. no post complications. Baby girl 3750 grams. 20.5 in long. Apgars 9/9. - ALLERGIES Allergies/Adverse Reactions: Allergies Allergy/AdvReac Type Severity Reaction Status Date / Time No Known Drug Allergies Allergy Verified 10/13/23 14:55 - MEDICATIONS Home Medications: Ambulatory Orders Medication Instructions Recorded Confirmed Pnv No.95/Ferrous Fum/Folic AC 1 each PO DAILY 10/13/23 03/10/24 [ Caplet] Omeprazole 40 mg PO DAILY 03/10/24 03/10/24 Valacyclovir HCl [Valtrex] 500 mg PO BID 03/10/24 03/10/24 - PHYSICAL EXAM AT DISCHARGE General Appearance: positive: No acute distress Cardiovascular: positive: Regular rate & rhythm Abdomen: positive: Non-tender - LABS Result Diagrams: 03/10/24 02:10 - FOLLOW UP Follow Up: in 1-2 weeks. call if problems. - TIME SPENT Time Spent in Discharge (Minutes): 5"
== END 2024-03-12 10:45 | disposition home or self-care (01) | DRG 806 ==
LOC: WFO 01:41 → FBP 01:42 → WFO 02:10 → FBP 02:16 → OBSVTOIN 02:17
PROVIDERS: ADMIT Obstetrics & Gynecology; ATTEND Obstetrics & Gynecology
PROC: 10E0XZZ Delivery of Products of Conception, External Approach (ICD-10-PCS; principal; 2024-03-10)
PROC: 0KQM0ZZ Repair Perineum Muscle, Open Approach (ICD-10-PCS; 2024-03-10)
PROC: 10907ZC Drainage of Amniotic Fluid, Therapeutic from Products of Conception, Via Natural or Artificial Opening (ICD-10-PCS; 2024-03-10)
DX: O70.1 Second degree perineal laceration during delivery (principal); O98.32 Other infections with a predominantly sexual mode of transmission complicating childbirth; Z37.0 Single live birth; O99.824 Streptococcus B carrier state complicating childbirth; A60.04 Herpesviral vulvovaginitis; Z3A.39 39 weeks gestation of pregnancy
CPT/HCPCS: 36415; 59409; 85025; 86850; 86900; 86901; 99215; A9270; J2765; J7120